=== PATIENT | male | born 1985 | race Caucasian/White ===

== ENCOUNTER 2019-02-14 18:58 | Emergency (ER) | payer MEDICAID ==
[~2019-02-14] VITALS: Ht 177.8 cm; Wt 79.4 kg
[2019-02-14] MEDS ORDERED: SUBOXONE 12 MG1 EACH SL (19:21)
[2019-02-14] MEDS ORDERED: CEPHALEXIN500 MG PO (19:25)
--- OUTSIDE RECORDS SUMMARY | 2019-02-14 19:40 | XMS ---
Carlos Notification: MINNIE RAY Security Compressor Technician Events No recent Security Events currently on file CRITERIA MET - [facility] Primary Care Current PC PHONE: [phone] NAHEED GAMBOA Primary Care Current PHONE: Unknown CLYDE MORTON Primary Care Aleksandra HANEY PHONE: Unknown PK PAYTON Primary Care 03/29/2012-Current PHONE: Unknown Vanessa MAYORGA, Primary Care 03/29/2012-Aleksandra Amado PHONE: [phone] CHAO Lopez Primary Care Current PHONE: Unknown Vanessa DAUGHERTY, Other 12/05/2011-Aleksandra Schulz PHONE: [phone] Care Guidelines exist for the following facilities: [facility] Cami VISIT COUNT (12 MO.) 1 [facility] 1 JOSEY Aj TOTAL 2 NOTE: Visits indicate total known visits. ED/UCC VISIT TRACKING (12 MO.) 02/14/2019 18:59 JOSEY [facility] [place] TYPE: Emergency COMPLAINT: - TOOTHACHE 12/31/2018 11:[address] [facility] TYPE: Emergency DIAGNOSES: - rt knee pain - Pain in right knee - Knee Pain - Personal history of oth (healed) physical injury and trauma INPATIENT VISIT TRACKING (12 MO.) No inpatient visits to display in this time frame [id number]
== END 2019-02-14 19:40 | disposition home or self-care (01) ==
LOC: ED 18:58
DX: K08.89 Other specified disorders of teeth and supporting structures (principal); F17.200 Nicotine dependence, unspecified, uncomplicated; Z88.1 Allergy status to other antibiotic agents; Z79.899 Other long term (current) drug therapy
CPT/HCPCS: 99282

== ENCOUNTER 2019-02-18 14:42 | Emergency (ER) | payer OTHER, MEDICAID ==
[~2019-02-18] VITALS: Ht 188 cm; Wt 79.4 kg
--- OUTSIDE RECORDS SUMMARY | ~2019-02-18 | XMS | Encounter Summary ---
Demographics + + + | Address | [address] | | | [place] [address] | + + + | Home Phone | | + + + | Preferred Language | Unknown | + + + | Marital Status | | + + + | Pentecostalism Affiliation | 1013 | + + + | Race | Unknown | + + + | Ethnic Group | Unknown | + + + Author + + + | Author | [facility] | | | and [place] | + + + | Organization | [facility] | | | and [place] | + + + | Address | Unknown | + + + | Phone | Unavailable | + + + Support + + + + + | Name | Relationship | Address | Phone | + + + + + | Shakira Lazcano | ECON | [address] | | | | | [place] | | | | | [address] | | + + + + + | Placido Robertson | ECON | Unknown | | + + + + + Care Team Providers + +------+ + | Care Stained Glass Glazier Name | Role | Phone | + +------+ + | No, Physician | PCP | Unavailable | + +------+ + Reason for Referral Evaluate & Treat (Routine) +--------+ + + + + + | Status | Reason | Specialty | Diagnoses / | Referred By | Referred To | | | | | Procedures | Contact | Contact | +--------+ + + + + + | Closed | Specialty | Orthopedic | Diagnoses | | Samir, | | | Services | Surgery | Lateral | Alicia, | Guicho Lopez MD | | | Required | | knee pain, | Ravinder Richards, | [address] | | | | | right | MD [address] [place] | | | | | History of | [address] | [place], [place] | | | | | tear of ACL | [place], | [address] Phone: | | | | | (anterior | [place] | [phone] | | | | | cruciate | [address] | Fax: | | | | | ligament) | Phone: | [phone] | | | | | | [phone] | | | | | | | Fax: | | | | | | | [phone] | | +--------+ + + + + + Reason for Visit + + + | Reason | Comments | + + + | Knee Pain | | + + + Encounter Details +--------+ + + + + | Date | Type | Department | Care Team | Description | +--------+ + + + + | 12/31/ | Emergency | [facility] | Alicia, | Lateral knee pain, | | 2019 | | [facility] | Ravinder Richards MD [address] | right (Primary Dx); | | | | CENTER [address] | [address] [facility] | History of tear of | | | | [place], [place] | [place] [address] | ACL (anterior | | | | [address] | [phone] | cruciate ligament) | | | | [phone] | | | +--------+ + + + + Social History + + + +--------+------+ | Tobacco Use | Types | Packs/Day | Years | Date | | | | | Used | | + + + +--------+------+ | Current Every Day | Cigarettes | 0.5 | | | | Smoker | | | | | + + + +--------+------+ + +---+---+---+ | Smokeless Tobacco: | | | | | Never Used | | | | + +---+---+---+ + + +---------+ + | Alcohol Use | Drinks/We | oz/Week | Comments | | | ek | | | + + +---------+ + | No | | | | + + +---------+ + + + + | Sex Assigned at | Date Recorded | | | | + + + | Not on file | | + + + + + + + | Job Start Date | Occupation | Industry | + + + + | Not on file | Not on file | Not on file | + + + + + + + + | Travel History | Travel Start | Travel End | + + + + + + | No recent travel history available. | + + documented as of this encounter Last Filed Vital Signs + + + + | Vital Sign | Reading | Time Taken | + + + + | Blood Pressure | 149/83 | 12/31/2018 1204 PDT | + + + + | Pulse | 72 | 12/31/20181203 PDT | + + + + | Temperature | 35.9 C (96.7 F) | 12/31/20181203 PDT | + + + + | Respiratory Rate | 16 | 12/31/20181203 PDT | + + + + | Oxygen Saturation | 97% | 12/31/20181203 PDT | + + + + | Inhaled Oxygen | - | - | | Concentration | | | + + + + | Weight | - | - | + + + + | Height | - | - | + + + + | Body Mass Index | - | - | + + + + documented in this encounter Functional Status + + + + | Functional Status | Response | Date of Assessment | + + + + | Are you deaf or do you have serious | No | 07/23/2015 | | difficulty hearing? | | | + + + + | Are you blind or do you have serious | No | 07/23/2015 | | difficulty seeing, even when wearing | | | | glasses? | | | + + + + | Do you have serious difficulty walking or | No | 07/23/2015 | | climbing stairs? (5 years old or older) | | | + + + + | Do you have difficulty dressing or bathing? | No | 07/23/2015 | | (5 years old or older) | | | + + + + | Because of a physical, mental, or emotional | No | 07/23/2015 | | condition, do you have difficulty doing | | | | errands alone such as visiting a doctor's | | | | office or shopping? [15 years old or | | | | older)] | | | + + + + + + + + | Cognitive Status | Response | Date of Assessment | + + + + | Because of a physical, mental, or emotional | No | 07/23/2015 | | condition, do you have serious difficulty | | | | concentrating, remembering, or making | | | | decisions? (5 years old or older) | | | + + + + documented as of this encounter Discharge Instructions Lilly Rodriguez RN - 12/31/2018Ice for swelling/pain Use ibuprofen for pain Follow up with orthopedics documented in this encounter Medications at Time of Discharge + + + +---------+ + + | Medication | Sig | Dispensed | Refills | Start | End Date | | | | | | Date | | + + + +---------+ + + | albuterol 90 | Inhale 2 puffs into | 1 | 0 | 07/22/19 | | | mcg/puff inhaler | the lungs every 4 | Inhaler | | 16 | | | | hours as needed for | | | | | | | Wheezing or | | | | | | | Shortness of Breath. | | | | | | | Use with spacer | | | | | | | device. | | | | | + + + +---------+ + + | | Place 1 tablet under | | 0 | | | | buprenorphine-naloxo | the tongue every 24 | | | | | | ne (SUBOXONE) 8-2 mg | hours. | | | | | | SL tablet | | | | | | + + + +---------+ + + | cloNIDine | Take 0.2 mg by mouth | | 0 | | | | (CATAPRES) 0.2 MG | 2 times daily. | | | | | | tablet | | | | | | + + + +---------+ + + | cyclobenzaprine | Take 1 tablet by | 21 | 0 | 10/22/19 | | | (FLEXERIL) 10 mg | mouth 3 times daily | tablet | | 16 | | | tablet | as needed for Muscle | | | | | | | spasms. | | | | | + + + +---------+ + + | ibuprofen | Take 1 tablet by | 30 | 0 | 01/01/20 | | | (ADVIL,MOTRIN) 600 | mouth every 6 hours | tablet | | 19 | | | MG tablet | as needed for Pain. | | | | | + + + +---------+ + + | ibuprofen | Take 1 tablet by | 15 | 0 | 07/23/19 | | | (ADVIL,MOTRIN) 600 | mouth every 8 hours | tablet | | 16 | | | MG tablet | as needed for Pain. | | | | | + + + +---------+ + + | naproxen | Take 1 tablet by | 30 | 0 | 10/22/19 | | | (NAPROSYN) 500 mg | mouth 2 times daily | tablet | | 16 | | | tablet | (with breakfast & | | | | | | | dinner). | | | | | + + + +---------+ + + documented as of this encounter Plan of Treatment + +--------+ + + | Name | Priori | Associated Diagnoses | Date/Time | | | ty | | | + +--------+ + + | ED INFORMATION EXCHANGE | Routin | | 12/31/2018 11:46 PDT | | | e | | | + +--------+ + + + +--------+ + + | Name | Priori | Associated Diagnoses | Order Schedule | | | ty | | | + +--------+ + + | Orthopedic Surgery [facility] - | Routin | Lateral knee pain, | Ordered: 12/31/2018 | | Jordi/Samir/Zafar | e | right History of | | | | | tear of ACL | | | | | (anterior cruciate | | | | | ligament) | | + +--------+ + + documented as of this encounter Procedures + +--------+ + + + | Procedure Name | Priori | Date/Time | Associated Diagnosis | Comments | | | ty | | | | + +--------+ + + + | XR KNEE RIGHT 1 - 2 | STAT | 12/31/2018 | | Results for this | | VW | | 12:36 PDT | | procedure are in the | | | | | | results section. | + +--------+ + + + | ED INFORMATION | Routin | 12/31/2018 | | | | EXCHANGE | e | 11:46 PDT | | | + +--------+ + + + +---+--------+ | | | | | Proced | | | ure | | | Note - | | | Johan, | | | Lab In | | | | | | Hlseve | | | n - | | | | | | 2018 | | | 1147 | | | PDT | | | Format | | | ting | | | of | | | this | | | note | | | might | | | be | | | differ | | | ent | | | from | | | the | | | origin | | | al.COL | | | LECTIV | | | E?NOTI | | | FICATI | | | ON? | | | | | | 9 | | | 11:45? | | | WATENE | | | , MINNIE | | | | | | W?MRN: | | | | | | [id number] | | | [id number] | | | riteri | | | a Met | | | | | | PDMPSe | | | curity | | | and | | | Safety | | | No | | | recent | | | | | | Securi | | | ty | | | Events | | | | | | curren | | | tly on | | | | | | fileED | | | Care | | | Guidel | | | inesTh | | | ere | | | are | | | curren | | | tly no | | | ED | | | Care | | | Guidel | | | sherlyn | | | for | | | this | | | patien | | | t. | | | Please | | | check | | | your | | | facili | | | ty's | | | medica | | | l | | | record | | | s | | | system | | | .Presc | | | riptio | | | n Drug | | | | | | Report | | | (12 | | | Mo.)Rx | | | | | | Detail | | | sFill | | | Date | | | Drug | | | Descri | | | ption | | | Qty. | | | Prescr | | | iber | | | CS MED | | | | | | 2019-0 | | | 8-07 | | | BUPREN | | | ORP-NA | | | LOX | | | 8-2 MG | | | SL | | | FILM 8 | | | CHON | | | | | | KYREE | | | 3 0 | | | 2019-0 | | | 8-05 | | | BUPREN | | | ORP-NA | | | LOX | | | 8-2 MG | | | SL | | | FILM 3 | | | CHON | | | | | | KYREE | | | 3 0 | | | 2019-0 | | | 7-02 | | | SUBOXO | | | NE 8 | | | MG-2 | | | MG SL | | | FILM 3 | | | CHON | | | | | | KYREE | | | 3 360 | | | | | | 2019-0 | | | 6-04 | | | DEXTRO | | | AMP-AM | | | PHET | | | ER 30 | | | MG CAP | | | 28 | | | MARYBETH | | | T | | | ROHIT | | | 2 0 | | | 2019-0 | | | 6-04 | | | BUPREN | | | ORP-NA | | | LOX | | | 8-2 MG | | | SL | | | FILM | | | 10 | | | MARYBETH | | | T | | | ROHIT | | | 0 | | | 2019-0 | | | 5-20 | | | DEXTRO | | | AMP-AM | | | PHET | | | ER 30 | | | MG CAP | | | 14 | | | MARYBETH | | | T | | | ROHIT | | | 2 0 | | | 2019-0 | | | 5-20 | | | BUPREN | | | ORPHIN | | | -NALOX | | | ON 8-2 | | | MG SL | | | 28 | | | MARYBETH | | | T | | | ROHIT | | | 3 480 | | | 2019-0 | | | 5-14 | | | SUBOXO | | | NE 8 | | | MG-2 | | | MG SL | | | FILM | | | 14 | | | MARYBETH | | | T | | | ROHIT | | | 3 480 | | | 2019-0 | | | 5-14 | | | DEXTRO | | | AMP-AM | | | PHET | | | ER 30 | | | MG CAP | | | 7 | | | MARYBETH | | | T | | | ROHIT | | | 2 0 | | | 2019-0 | | | 5-02 | | | BUPREN | | | ORPHIN | | | -NALOX | | | ON 8-2 | | | MG SL | | | 14 | | | MARYBETH | | | T | | | ROHIT | | | 3 0 | | | 2019-0 | | | 5-02 | | | DEXTRO | | | AMP-AM | | | PHET | | | ER 30 | | | MG CAP | | | 7 | | | MARYBETH | | | T | | | ROHIT | | | 2 0 | | | 2019-0 | | | 4-25 | | | BUPREN | | | ORPHIN | | | -NALOX | | | ON 8-2 | | | MG SL | | | 14 | | | MARYBETH | | | T | | | ROHIT | | | 3 480 | | | 2019-0 | | | 4-25 | | | DEXTRO | | | AMP-AM | | | PHET | | | ER 30 | | | MG CAP | | | 7 | | | MARYBETH | | | T | | | ROHIT | | | 2 0 | | | 2019-0 | | | 4-18 | | | DEXTRO | | | AMP-AM | | | PHET | | | ER 30 | | | MG CAP | | | 7 | | | MARYBETH | | | T | | | ROHIT | | | 2 0 | | | 2019-0 | | | 4-18 | | | BUPREN | | | ORPHIN | | | -NALOX | | | ON 8-2 | | | MG SL | | | 14 | | | MARYBETH | | | T | | | ROHIT | | | 3 480 | | | 2019-0 | | | 4-10 | | | BUPREN | | | ORPHIN | | | -NALOX | | | ON 8-2 | | | MG SL | | | 12 | | | MARYBETH | | | T | | | ROHIT | | | 3 480 | | | 2019-0 | | | 3-20 | | | DEXTRO | | | AMP-AM | | | PHET | | | ER 30 | | | MG CAP | | | 30 | | | MARYBETH | | | T | | | ROHIT | | | 2 0 | | | 2019-0 | | | 3-14 | | | BUPREN | | | ORP-NA | | | LOX | | | 8-2 MG | | | SL | | | FILM | | | 60 | | | MARYBETH | | | T | | | ROHIT | | | 0 | | | 2019-0 | | | 2-25 | | | BUPREN | | | ORP-NA | | | LOX | | | 8-2 MG | | | SL | | | FILM | | | 11 | | | MARYELLEN | | | QURESHI | | | LL 0 | | | 2019-0 | | | 2-22 | | | SUBOXO | | | NE 8 | | | MG-2 | | | MG SL | | | FILM 6 | | | | | | DANIELA | | | DUBEK | | | 3 360 | | | | | | Showin | | | g 20 | | | of the | | | 32 | | | most-r | | | ecent | | | prescr | | | iption | | | s Rx | | | Summar | | | yMetri | | | c | | | Count | | | CS | | | II-V | | | Rx 29 | | | CS-II | | | Rx 12 | | | Quanti | | | ty | | | Dispen | | | sed | | | 662 | | | Unique | | | | | | Prescr | | | ibers | | | 5 | | | Unique | | | | | | Pharma | | | cies 3 | | | | | | Benzos | | | 0 | | | Opioid | | | s 14 | | | Long | | | Acting | | | | | | Opioid | | | s 0 | | | E.D. | | | Visit | | | Count | | | (12 | | | mo.)Fa | | | cility | | | | | | Visits | | | Low | | | Acuity | | | | | | Provid | | | ence | | | [facility] | [facility] | Medica | | | l | | | Center | | | 1 0 | | | Total | | | 1 0 | | | Note: | | | Visits | | | | | | indica | | | te | | | total | | | known | | | visits | | | . | | | Medica | | | id Low | | | | | | Acuity | | | Dx | | | are | | | the | | | number | | | of | | | primar | | | y | | | diagno | | | ses on | | | the | | | Medica | | | id's | | | Low | | | Acuity | | | dx | | | list. | | | | | | Recent | | | | | | Emerge | | | ncy | | | Depart | | | ment | | | Visit | | | [facility] | | | yDate | | | Facili | | | ty | | | City | | | State | | | Type | | | Diagno | | | ses or | | | Chief | | | | | | Compla | | | int | | | Sep 4, | | | 2019 | | | Provid | | | ence | | | [facility] | [place] | | | [place] | | | Emerge | | | ncy | | | rt | | | knee | | | pain | | | Recent | | | | | | Inpati | | | ent | | | Visit | | | [facility] | | | yNo | | | record | | | ed | | | inpati | | | ent | | | visits | | | . Care | | | | | | TeamPr | | | ovider | | | PRC | | | Type | | | Phone | | | Fax | | | Servic | | | e | | | Dates | | | [facility] | | | [facility] | [facility] | | | [facility] | | | PC | | | Primar | | | y Care | | | (360) | | | | | | [phone] | | | 38 | | | Curren | | | t | | | STEPHE | | | N | | | WASZAK | | | | | | Primar | | | y Care | | | | | | Curren | | | t | | | OJSE | | | INE | | | MERLE | | | PRAVEEN | | | MORLOC | | | K | | | Primar | | | y Care | | | | | | Curren | | | t | | | STOLLE | | | R, | | | PK | | | Primar | | | y Care | | | Dec | | | 1, | | | 2012 - | | | | | | Curren | | | t | | | GOODMA | | | N, | | | M.D., | | | MALENA | | | R. | | | Primar | | | y Care | | | [phone]) | | | | | | [phone] | | | 06 | | | (425) | | | [phone] | | | 48 Dec | | | 1, | | | 2012 - | | | | | | Curren | | | t | | | HERSON | | | ADDY | | | HAMMER | | | | | | Primar | | | y Care | | | (360) | | | | | | [phone] | | | 55 | | | (360) | | | [phone] | | | 46 | | | Curren | | | t | | | DUNNIN | | | GTON, | | | M.D., | | | PK | | | A. | | | Other | | | (360) | | | [phone] | | | 40 | | | Aug 8, | | | 2012 | | | - | | | Curren | | | t | | | Collec | | | tive | | | Portal | | | This | | | patien | | | t has | | | regist | | | ered | | | at the | | | | | | Provid | | | ence | | | [facility] | | [facility] | Medica | | | l | | | Center | | | | | | Emerge | | | ncy | | | Depart | | | ment | | | For | | | more | | | inform | | | ation | | | visit: | | | | | | https: | | | //secu | | | re.col | | | lectiv | | | emedic | | | al.com | | | /notif | | | y/f1ab | | | [email or web address] | | | [id number] | | | [email or web address] | | | [email or web address] | | | [email or web address] | | | 00 | | | PLEASE | | | NOTE: | | | 1. | | | Any | | | care | | | recomm | | | endati | | | ons | | | and | | | other | | | clinic | | | al | | | inform | | | ation | | | are | | | provid | | | ed as | | | guidel | | | sherlyn | | | or for | | | | | | histor | | | ical | | | purpos | | | es | | | only, | | | and | | | provid | | | ers | | | should | | | | | | exerci | | | se | | | their | | | own | | | clinic | | | al | | | judgme | | | nt | | | when | | | provid | | | ing | | | care. | | | 2. | | | You | | | may | | | only | | | use | | | this | | | inform | | | ation | | | for | | | purpos | | | es of | | | treatm | | | ent, | | | paymen | | | t or | | | health | | | care | | | operat | | | ions | | | activi | | | ties, | | | and | | | subjec | | | t to | | | the | | | limita | | | tions | | | of | | | applic | | | able | | | Collec | | | tive | | | Polici | | | es. | | | 3. | | | You | | | should | | | | | | consul | | | t | | | direct | | | ly | | | with | | | the | | | organi | | | zation | | | that | | | provid | | | ed a | | | care | | | guidel | | | ine or | | | other | | | | | | clinic | | | al | | | histor | | | y with | | | any | | | questi | | | ons | | | about | | | additi | | | onal | | | inform | | | ation | | | or | | | accura | | | cy or | | | comple | | | teness | | | of | | | inform | | | ation | | | provid | | | ed.? | | | 2019 | | | Collec | | | tive | | | Medica | | | l | | | Techno | | | logies | | | , Inc. | | | - | | | [email or web address] | | | llecti | | | vemedi | | | [email or web address] | | | m | +---+--------+ documented in this encounter Results XR Knee Right 1 - 2 Vw (12/31/2018 12:36 PDT) + + | Specimen | + + | | + + + + + | Narrative | Performed At | + + + | CLINICAL INFORMATION: KNEE PAIN. COMPARISON: None available. | [facility] | | FINDINGS: 2 views of the right knee. Bones: No bony lesion or | | | periostitis. Joints: Tricompartment osteophyte formation and mild | | | joint space narrowing. Mild subchondral cortical surface | | | irregularity at the medial femoral condyle. No significant joint | | | effusion. Soft tissue: There is a large mineralized body posterior | | | to the lateral femoral condyle measuring up to 3.0 cm. Small | | | mineralized body also noted distal to the patellar apex measuring up | | | to 7 mm. IMPRESSION - Small mineralized body distal to the | | | patellar apex, consider acute avulsion injury. 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 Large mineralized body posterior to the lateral femoral | | | condyle may represent a large flabella. An intra-articular loose | | | body is also a consideration. Dictated and Signed by: | | | Cecil Polk MD Electronically signed: 12/31/2018 12:55 PM | | + + + + + | Procedure Note | + + | Johan, Rad Results In - 12/31/2018 1259 PDT CLINICAL INFORMATION: KNEE PAIN. | | | | COMPARISON: None available. | | | | FINDINGS: | | 2 views of the right knee. | | | | Bones: No bony lesion or periostitis. | | | | Joints: Tricompartment osteophyte formation and mild joint space narrowing. | | Mild subchondral cortical surface irregularity at the medial femoral condyle. | | No significant joint effusion. | | | | Soft tissue: There is a large mineralized body posterior to the lateral femoral | | condyle measuring up to 3.0 cm. Small mineralized body also noted distal to the | | patellar apex measuring up to 7 mm. | | | | | | IMPRESSION - | | | | Small mineralized body distal to the patellar apex, consider acute avulsion | | injury. 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 | | | | Large mineralized body posterior to the lateral femoral condyle may represent a | | large flabella. An intra-articular loose body is also a consideration. | | | | Dictated and Signed by: Cecil Polk MD | | Electronically signed: 12/31/2018 12:55 PM | + + + +---------+ + + | Performing | Address | City/State[facility] | Phone Number | | Organization | | | | + +---------+ + + | [facility] | | | | + +---------+ + + documented in this encounter Visit Diagnoses + + | Diagnosis | + + | Lateral knee pain, right - Primary | + + | History of tear of ACL (anterior cruciate ligament) Personal history of other | | musculoskeletal disorders | + + documented in this encounter"
--- OUTSIDE RECORDS SUMMARY | ~2019-02-18 | XMS | Clinical Summary ---
Demographics + + + | Address | [address] | | | [place] [address] | + + + | Home Phone | | + + + | Preferred Language | Unknown | + + + | Marital Status | | + + + | Druze Affiliation | 1013 | + + + | Race | Unknown | + + + | Ethnic Group | Unknown | + + + Author + + + | Author | [facility] | | | and [place] | + + + | Organization | [facility] | | | [...] [place] | | | | | [address] | | + + + + + | Placido Robertson | ECON | Unknown | | + + + + + Care Team Providers + +------+ + | Care Aircraft Maintenance Technician Name | Role | Phone | + +------+ + | No Physician | PCP | Unavailable | + +------+ + Allergies + + + + + + | Active Allergy | Reactions | Severity | Noted | Comments | | | | | Date | | + + + + + + | Erythromycin | | | 03/25/20 | | | | | | 16 | | + + + + + + Medications + + + +---------+------+------+-------+ | Medication | Sig | Dispensed | Refills | Star | End | Statu | | | | | | t | Date | s | | | | | | Date | | | + + + +---------+------+------+-------+ | cloNIDine | Take 0.2 mg by mouth | | 0 | | | Activ | | (CATAPRES) 0.2 MG | 2 times daily. | | | | | e | | tablet | | | | | | | + + + +---------+------+------+-------+ | | Place 1 tablet under | | 0 | | | Activ | | buprenorphine-naloxo | the tongue every 24 | | | | | e | | ne (SUBOXONE) 8-2 mg | hours. | | | | | | | SL tablet | | | | | | | + + + +---------+------+------+-------+ | albuterol 90 | Inhale 2 puffs into | 1 | 0 | 03/2 | | Activ | | mcg/puff inhaler | the lungs every 4 | Inhaler | | 5/20 | | e | | | hours as needed for | | | 16 | | | | | Wheezing or | | | | | | | | Shortness of Breath. | | | | | | | | Use with spacer | | | | | | | | device. | | | | | | + + + +---------+------+------+-------+ | ibuprofen | Take 1 tablet by | 15 | 0 | 03/2 | | Activ | | (ADVIL,MOTRIN) 600 | mouth every 8 hours | tablet | | 6/20 | | e | | MG tablet | as needed for Pain. | | | 16 | | | + + + +---------+------+------+-------+ | naproxen | Take 1 tablet by | 30 | 0 | 06/2 | | Activ | | (NAPROSYN) 500 mg | mouth 2 times daily | tablet | | 5/20 | | e | | tablet | (with breakfast & | | | 16 | | | | | dinner). | | | | | | + + + +---------+------+------+-------+ | cyclobenzaprine | Take 1 tablet by | 21 | 0 | 06/2 | | Activ | | (FLEXERIL) 10 mg | mouth 3 times daily | tablet | | 5/20 | | e | | tablet | as needed for Muscle | | | 16 | | | | | spasms. | | | | | | + + + +---------+------+------+-------+ | ibuprofen | Take 1 tablet by | 30 | 0 | 09/0 | | Activ | | (ADVIL,MOTRIN) 600 | mouth every 6 hours | tablet | | 4/20 | | e | | MG tablet | as needed for Pain. | | | 19 | | | + + + +---------+------+------+-------+ Active Problems + + + | Problem | Noted Date | + + + | Abscess of left forearm | 02/07/2014 | + + + | Cellulitis of right hand | 02/07/2014 | + + + | Drug abuse, IV | 02/07/2014 | + + + | Elevated blood sugar | 02/07/2014 | + + + Encounters +--------+ + + + + | Date | Type | Specialty | Care Team | Description | +--------+ + + + + | 12/31/ | Emergency | Emergency Medicine | Alicia | Lateral knee pain, | | 2019 | | | Ravinder Richards MD | right (Primary Dx); | | | | | | History of tear of | | | | | | ACL (anterior | | | | | | cruciate ligament) | +--------+ + + + + from Last 3 Months Family History + + +------+ + | Medical History | Relation | Name | Comments | + + +------+ + | Other (see comment) | Mother | | "mental health problems" | + + +------+ + + +------+--------+ + | Relation | Name | Status | Comments | + +------+--------+ + | Mother | | | | + +------+--------+ + Social History + + + +--------+------+ [...] recent travel history available. | + + Last Filed Vital Signs + + + + | Vital Sign | Reading | Time Taken | + + + + | Blood Pressure | 149/83 | 12/31/20181203 PDT | + + + [...] + + + + | Weight | 93 kg (205 lb) | 10/22/20151910 PDT | + + + + | Height | 188 cm (6' 2.02") | 10/22/20151910 PDT | + + + + | Body Mass Index | 26.31 | 10/22/20151910 PDT | + + + + Plan of Treatment + + + + + | Health Maintenance | Due Date | Last Done | Comments | + + + + + | Vaccine: | | | | | Pneumococcal 19-64 | 3 | | | | (PPSV23 only) Medium | | | | | Risk (1 of - | | | | | PPSV23) | | | | + + + + + | Vaccine: | | 01/13/2013 | | | Dtap/Tdap/Td (1 - | 3 | | | | Tdap) | | | | + + + + + | Vaccine: Influenza | | | | | (#1) | 9 | | | + + + + + Procedures + +--------+ + + + | [...] | | | FICATI | | | ON?/ | | | | | | 9 | | | 11:45? | | | WATENE | | | , MINNIE | | | | | | W?MRN: | | | | | | [id number] | | | [id number] | | | riteri | | | [...] | | | t | | | JOSE | | | INE | | | [...] [email or web address] | | | m | +---+--------+ from Last 3 Months Results XR Knee Right 1 - 2 [...] + + | Performing | Address | City/State/Zipcode | Phone Number | | Organization | | | | + +---------+ + + | [facility] | | | | + +---------+ + + from Last 3 Months Insurance + +--------+ +--------+-------+---------+--------+ | Payer | Benefi | Subscriber | Effect | Phone | Address | Type | | | t Plan | ID | ashley | | | | | | / | | Dates | | | | | | Group | | | | | | + +--------+ +--------+-------+---------+--------+ | AMERIGROUP MEDICAID | AMERIG | [id number] | 10/28/19 | | | Medica | | HMO | ROUP | | 19-Pre | | | id | | | APPLE | | sent | | | | | | [place]ALTH | | | | | | | | [place] | | | | | | + +--------+ +--------+-------+---------+--------+ + +--------+ +--------+ + + | Guarantor Name | Accoun | Relation to | Date | Phone | Billing Address | | | t Type | Patient | of | | | | | | | | | | + +--------+ +--------+ + + | Minnie Robertson | Person | Self | [birth year] | | [address] | | | al/Fam | | 1985 | [phone] | [place] [address] | | | li | | | 4 (Home) | | + +--------+ +--------+ + + | Minnie Robertson | Mental | Self | [birth year] | | [address] | | | | | 1985 | [phone] | [place] [address] | | | Health | | | 3 (Home) | | + +--------+ +--------+ + + Advance Directives Patient has advance care planning documents, and code status on file. For more information, please contact:[facility] [place] [place] [address] + + + + + | Code Status | Date | Date | Comments | | | Activated | Inactivated | | + + + + + | Full Code | 02/07/2014 | 02/08/2014 | | | | 4:44 | 18:07 | | + + + + +
--- OUTSIDE RECORDS SUMMARY | ~2019-02-18 | XMS | Clinical Summary ---
Demographics + + + | Address | [address] | | | [place] [address] | + + + | Home Phone | | + + + | Preferred Language | Unknown | + + + | Marital Status | | + + + | Samaritan Affiliation | 1013 | + + + | Race | Unknown | + + + | Ethnic Group | Unknown | + + + Author + + + | Author | [facility] | | | and [place] | + + + | Organization | [facility] | | | [...] [place] | | | | | [address] | | + + + + + | Placido Robertson | ECON | Unknown | | + + + + + Care Team Providers + +------+ + | Care Towel Rolling Machine Operator Name | Role | Phone | + [...] W?MRN: | | | | | | [id number] | | | [id number] | | | riteri | | | [...] +--------+-------+---------+--------+ | AMER[employer] MEDICAID | AMERIG | [id number] | 10/28/19 | | | Medica | [...] | + +--------+ +--------+ + + | Minine Robertson | Person | Self | [birth year] | | [address] | | | al/Fam | | 1985 | [phone] | [place] [address] | | | li | | | 4 (Home) | | + +--------+ +--------+ + + | Minnie Robertson | Mental | Self | [birth year] | | [address] | | | | | 1985 | [phone] | [place] [address] | | | Health | | | 3 (Home) | | + +--------+ +--------+ + + Advance Directives Patient has advance care planning documents, and code status on file. For more information, please contact:[facility] [place] [address] + + + + + | Code Status | Date | Date | Comments | | | Activated | Inactivated | | + + + + + | Full Code | 02/07/2014 | 02/08/2014 | | | | 4:44 | 18:07 | | + + + + +
--- OUTSIDE RECORDS SUMMARY | ~2019-02-18 | XMS | Encounter Summary ---
Demographics + + + | Address | [address] | | | [place] [address] | + + + | Home Phone | | + + + | Preferred Language | Unknown | + + + | Marital Status | | + + + | Voodoo Affiliation | 1013 | + + + | Race | Unknown | + + + | Ethnic Group | Unknown | + + + Author + + + | Author | [facility] | | | and [place] | + + + | Organization | [facility] | | | [...] [place] | | | | | [address] | | + + + + + | Placido Robertson | ECON | Unknown | | + + + + + Care Team Providers + +------+ + | Care Cable Installation Manager Name | Role | Phone | + [...] tear of ACL | [place], | [address] Phone: | | | | | (anterior | [place] | [phone] | | | | | cruciate | [address] | Fax: | | | | | ligament) | Phone: | [phone] | | | | | | [phone] | | | | | | | Fax: | | | | | | | [phone] | | +--------+ + + + + + Reason for Visit + + + | Reason | Comments | + + + | Knee Pain | | + + + Encounter Details +--------+ + + + + | Date | Type | Department | Care Team | Description | +--------+ + + + + | 12/31/ | Emergency | [facility] | Alicia, | Lateral knee pain, | | 2019 | | [facility] CTR EM[facility] | Ravinder Richards MD [address] | right (Primary Dx); | | | | CENTER [address] | [address] [facility] | History of tear of | | | | [place], [place] | [place] [address] | ACL (anterior | | | | [address] | [phone] | cruciate ligament) | | | | [phone] | | | +--------+ + + + [...] + +--------+ + + | Orthopedic Surgery [facility] - | Routin | Lateral knee [...] W?MRN: | | | | | | [id number] | | | [id number] | | | riteri | | | [...] + + | Performing | Address | City/State[facility] | Phone Number | | Organization | [...]
[~2019-02-18 14:42] MED LIST: CEPHALEXIN500 MG PO; SUBOXONE 12 MG1 EACH SL
--- OUTSIDE RECORDS SUMMARY | 2019-02-18 14:44 | XMS ---
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 No recent Security Events currently on file CRITERIA MET - [facility] - 2 Visits in 30 Days [facility] Primary Care Current Airu PHONE: [phone] NAHEED GAMBOA Primary [facility] Current PHONE: Unknown CLYDE MORTON Primary [facility] Aleksandra HANEY PHONE: Unknown PK PAYTON Primary Care 03/29/2012-Current PHONE: Unknown Vanessa MAYORGA, Primary Care 03/29/2012-Aleksandra Amado PHONE: [phone] HERSON GUIDYR Primary Care Aleksandra Braga PHONE: [phone] CHIQUI GARZA Primary Care Current PHONE: [phone] Vanessa DAUGHERTY, Other 12/05/2011-Aleksandra Schulz PHONE: [phone] Care Guidelines exist for the following facilities: [facility] ( 06/25/2016 ) Cami VISIT COUNT (12 MO.) [address] [facility] Ferraro 2 JOSEY Aj TOTAL 3 NOTE: Visits indicate total known visits. ED/UCC VISIT TRACKING (12 MO.) 02/18/2019 14:42 [facility] [place] TYPE: Emergency COMPLAINT: - RIGHT HAND INJURY 02/14/2019 18:59 [facility] [place] TYPE: Emergency COMPLAINT: - TOOTHACHE DIAGNOSES: - Other specified disorders of teeth and supporting structures - Nicotine dependence, unspecified, uncomplicated - Other detention (current) drug therapy - Other specified disorders of teeth and supporting structures - Allergy status to other antibiotic agents status [facility] DIAGNOSES: - rt knee pain - Pain in right knee - Knee Pain - Personal history of oth (healed) physical injury and trauma INPATIENT VISIT TRACKING (12 MO.) No inpatient visits to display in this time frame [id number]
[2019-02-18] MEDS ORDERED: ULTRAM50 MG PO (17:46)
[2019-02-18] MEDS ORDERED: KEFLEX500 MG PO (17:47)
== END 2019-02-18 18:08 | disposition home or self-care (01) ==
LOC: ED 14:42
DX: S69.91XA Unspecified injury of right wrist, hand and finger(s), initial encounter (principal); W22.8XXA Striking against or struck by other objects, initial encounter; F17.200 Nicotine dependence, unspecified, uncomplicated; Z88.1 Allergy status to other antibiotic agents; Z79.899 Other long term (current) drug therapy
CPT/HCPCS: 99283; 99406

== ENCOUNTER 2019-02-24 17:11 | Emergency (ER) | payer SELFPAY ==
[~2019-02-24] VITALS: Ht 188 cm; Wt 86.2 kg
--- OUTSIDE RECORDS SUMMARY | ~2019-02-24 | XMS | Encounter Summary ---
Demographics + + + | Address | [address] | | | [place] [address] | + + + | Home Phone | | + + + | Preferred Language | Unknown | + + + | Marital Status | | + + + | Anabaptism Affiliation | 1013 | + + + | Race | Unknown | + + + | Ethnic Group | Unknown | + + + Author + + + | Author | [facility] | | | and [place] | + + + | Organization | [facility] | | | and [...] [place] | | | | | [address] | | + + + + + | Placido Robertson | ECON | Unknown | | + + + + + Care Team Providers + +------+ + | Care Steel Analyst Name | Role | Phone | + [...] tear of ACL | [place], | [address] Phone: | | | | | (anterior | [place] | [phone] | | | | | cruciate | [address] | Fax: | | | | | ligament) | Phone: | [phone] | | | | | | [phone] | | | | | | | Fax: | | | | | | | [phone] | | +--------+ + + + + + Reason for Visit + + + | Reason | Comments | + + + | Knee Pain | | + + + Encounter Details +--------+ + + + + | Date | Type | Department | Care Team | Description | +--------+ + + + + | 12/31/ | Emergency | [facility] | Alicia, | Lateral knee pain, | | 2019 | | MED CTR EMERGENCY | Ravinder Richards MD [address] | right (Primary Dx); | | | | CENTER [address] | [address] [facility] | History of tear of | | | | [place], [place] | [place] [address] | ACL (anterior | | | | [address] | [phone] | cruciate ligament) | | | | [phone] | | | +--------+ + + + [...] + +--------+ + + | Orthopedic Surgery [facility] - | Routin | Lateral knee [...] W?MRN: | | | | | | [id number] | | | [id number] | | | riteri | | | [...] | | | 10 | | | MARBYETH | | | T | | | [...] + + | Performing | Address | City/State[facility] | Phone Number | | Organization [...]
--- OUTSIDE RECORDS SUMMARY | ~2019-02-24 | XMS | Clinical Summary ---
Demographics + + + | Address | [address] | | | [place] [address] | + + + | Home Phone | | + + + | Preferred Language | Unknown | + + + | Marital Status | | + + + | Druze Affiliation | 1013 | + + + | Race | Unknown | + + + | Ethnic Group | Unknown | + + + Author + + + | Author | [facility] | | | and [place] | + + + | Organization | [facility] | | | [...] [place] | | | | | [address] | | + + + + + | Placido Robertson | ECON | Unknown | | + + + + + Care Team Providers + +------+ + | Care Electrical Equipment Technician Name | Role | Phone | [...] W?MRN: | | | | | | [id number] | | | [id number] | | | riteri | | | [...] +--------+-------+---------+--------+ | AMERIGR[employer] MEDICAID | AMERIG | [id number] | 10/28/19 | | | Medica | [...] | | al/Fam | | 1985 | [phone] | [place] [address] | | | li | | | 4 (Home) | | + +--------+ +--------+ + + | Minnie Robertson | Mental | Self | [birth year] | | [address] | | | | | 1985 | [phone] | [place] [address] | | | Health | | | 3 (Home) | | + +--------+ +--------+ + + Advance Directives Patient has advance care planning documents, and code status on file. For more information, please contact:[facility] [place] [facility] [place] [address] + + + + + | Code Status | Date | Date | Comments | | | Activated | Inactivated | | + + + + + | Full Code | 02/07/2014 | 02/08/2014 | | | | 4:44 | 18:07 | | + + + + +
--- OUTSIDE RECORDS SUMMARY | ~2019-02-24 | XMS | Clinical Summary ---
Demographics + + + | Address | [address] | | | [place] [address] | + + + | Home Phone | | + + + | Preferred Language | Unknown | + + + | Marital Status | | + + + | Holiness Affiliation | 1013 | + + + | Race | Unknown | + + + | Ethnic Group | Unknown | + + + Author + + + | Author | [facility] | | | and [place] | + + + | Organization | [facility] | | | [...] [place] | | | | | [address] | | + + + + + | Placido Robertson | ECON | Unknown | | + + + + + Care Team Providers + +------+ + | Care Business Administrator Name | Role | Phone | + [...] W?MRN: | | | | | | [id number] | | | [id number] | | | riteri | | | [...] +--------+-------+---------+--------+ | AMER[employer] MEDICAID | AMERIG | [id number] | 10/28/19 | | | Medica | [...] | | al/Fam | | 1985 | [phone] | [place] [address] | | | li | | | 4 (Home) | | + +--------+ +--------+ + + | Minnie Robertson | Mental | Self | [birth year] | | [address] | | | | | 1985 | [phone] | [place] [address] | | | Health | | | 3 (Home) | | + +--------+ +--------+ + + Advance Directives Patient has advance care planning documents, and code status on file. For more information, please contact:[facility] [place] [address] + + + + + | Code Status | Date | Date | Comments | | | Activated | Inactivated | | + + + + + | Full Code | 02/07/2014 | 02/08/2014 | | | | 4:44 | 18:07 | | + + + + +
--- OUTSIDE RECORDS SUMMARY | ~2019-02-24 | XMS | Encounter Summary ---
Demographics + + + | Address | [address] | | | [place] [address] | + + + | Home Phone | | + + + | Preferred Language | Unknown | + + + | Marital Status | | + + + | Zoroastrianism Affiliation | 1013 | + + + | Race | Unknown | + + + | Ethnic Group | Unknown | + + + Author + + + | Author | [facility] | | | and [place] | + + + | Organization | [facility] | | | and [place] | + [...] [place] | | | | | [address] | | + + + + + | Placido Robertson | ECON | Unknown | | + + + + + Care Team Providers + +------+ + | Care Weekday Babysitter Name | Role | Phone | + [...] tear of ACL | [place], | [address] Phone: | | | | | (anterior | [place] | [phone] | | | | | cruciate | [address] | Fax: | | | | | ligament) | Phone: | [phone] | | | | | | [phone] | | | | | | | Fax: | | | | | | | [phone] | | +--------+ + + + + + Reason for Visit + + + | Reason | Comments | + + + | Knee Pain | | + + + Encounter Details +--------+ + + + + | Date | Type | Department | Care Team | Description | +--------+ + + + + | 12/31/ | Emergency | [facility] | Alicia, | Lateral knee pain, | | 2019 | | MED CTR EMERGENCY | Ravinder Richards MD [address] | right (Primary Dx); | | | | CENTER [address] | [address] [facility] | History of tear of | | | | [place], [place] | [place] [address] | ACL (anterior | | | | [address] | [phone] | cruciate ligament) | | | | [phone] | | | +--------+ + + + [...] + +--------+ + + | Orthopedic Surgery [facility] - | Routin | Lateral [...] W?MRN: | | | | | | [id number] | | | [id number] | | | riteri | | | [...] + + | Performing | Address | City/[facility] | Phone Number | | Organization [...]
[~2019-02-24 17:11] MED LIST changes: +KEFLEX500 MG PO; +ULTRAM50 MG PO
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
== END 2019-02-24 19:22 | disposition home or self-care (01) ==
LOC: ED 17:11
DX: M25.561 Pain in right knee (principal); G89.29 Other chronic pain; Z87.891 Personal history of nicotine dependence; Z88.1 Allergy status to other antibiotic agents; Z79.899 Other long term (current) drug therapy
CPT/HCPCS: 73560; 99283